=== PATIENT | female | born 1960 | race Caucasian/White ===

== ENCOUNTER 2024-05-23 12:15 | Observation (INO) | payer OTHER, MEDICAID ==
[2024-05-23 14:16] VITALS: BMI 33.3
[2024-05-23] MEDS ORDERED: Ondansetron PF 4 MG/2 ML Vial IVP PRN (14:43)
[2024-05-23] MEDS ORDERED: hydrALAZINE 20 MG/ML VIAL SLOW IVP PRN (14:47)
[2024-05-23] MEDS: Aspirin 81 mg Enteric Coated Tablet PO SCH (16:10)
[2024-05-23] MEDS: Acetaminophen 325 MG TAB PO PRN (17:59)
[2024-05-23] MEDS: Acetaminophen/Codeine 30-300mg Tablet PO PRN (20:01)
[2024-05-23] MEDS ORDERED: Melatonin 3 MG TAB PO PRN (20:22)
[2024-05-23] MEDS ORDERED: Melatonin 3 MG TAB PO SCH (21:00)
[2024-05-23] MEDS: QUEtiapine 100 MG TAB PO SCH (21:39)
[2024-05-23] MEDS: Methocarbamol 500 MG TAB PO SCH (21:39)
[2024-05-23] MEDS: Atorvastatin Calcium 40 MG TAB PO SCH (21:39)
[2024-05-23] MEDS: busPIRone HCl 15 MG TAB PO SCH (21:39)
[2024-05-23] MEDS: Pantoprazole DR 40 MG TAB PO SCH (21:40)
[2024-05-23] MEDS: levETIRAcetam 500 MG TAB PO SCH (21:40)
[2024-05-23] MEDS: traZODone HCl 150 MG TAB PO SCH (21:41)
[2024-05-23] MEDS: Temazepam 15 MG CAP PO SCH (21:50)
[2024-05-24 04:44] LABS: #Basophils 0.02 10x3/uL (0.0-0.2); #Eosinophils 0.01 10x3/uL (0.0-0.5); #Monocytes 0.36 10x3/uL (0.0-1.1); #Neutrophils 2.12 10x3/uL (1.5-8.4); %Basophils 0.4 % (0.0-2.0); %Eosinophils 0.2 % (0.0-6.0); %Lymphocytes 43.6 % (18.0-47.0); %Monocytes 8.1 % (0.0-10.0); %Neutrophils 47.5 % (40.0-75.0); Hematocrit 40.5 % (34.9-44.5); Hemoglobin 13.7 g/dL (12.0-15.5); Mean Corpuscular HGB CONC 33.8 g/dL (32.0-36.0); Mean Corpuscular Hemoglobin 30.8 pg (27.0-33.0); Mean Platelet Volume 9.6 fL (7.4-10.4); Platelet Count 142 10x3/uL (150-450); RBC Distribution Width 12.4 % (11.5-14.5); Red Blood Cell (RBC) Count 4.45 10x6/uL (3.90-5.03); White Blood Cell (WBC) Count 4.5 10x3/uL (3.5-10.5)
[2024-05-24 04:57] LABS: Anion Gap 12 mmol/L (10-20); BUN (Urea Nitrogen) 11 mg/dL (9.8-20.1); Calc. Creatinine Clearance 100 mL/min (70-130); Calcium 9.3 mg/dL (7.8-10.44); Carbon Dioxide 24 mmol/L (23-31); Cardiac Risk 2.7 (Less than 4.5); Chloride 108 mmol/L (98-107); Cholesterol 144 mg/dl (< 200 Desired); Estimated GFR 83; Glucose 90 mg/dL (80-115); HDL Cholesterol 54 mg/dL (>60 Neg Risk); LDL Cholesterol, Calculated 70 mg/dL; Potassium 4.1 mmol/L (3.5-5.1); Sodium 140 mmol/L (136-145); Triglycerides 99 mg/dL (Less than 150)
[2024-05-24] MEDS ORDERED: Non-Formulary Medication 1 EACH (Linaclotide [Linzess] 145 MCG Capsule) PO SCH (07:30)
[2024-05-24] MEDS: FLUoxetine HCl 20 MG CAP PO SCH (09:38)
[2024-05-24] MEDS: Enoxaparin 40 MG (0.4 mL) SYRINGE SC SCH (09:39)
[2024-05-24] MEDS: Metoprolol Tartrate 50 MG TAB PO SCH (09:39)
[2024-05-24] MEDS: Aspirin 81 mg Enteric Coated Tablet PO SCH (09:39)
[2024-05-24] MEDS ORDERED: BUPRENORPHINE TD SCH (09:45)
[2024-05-24 12:36] LABS: Hemoglobin A1c 5.4 % (4.0-6.0)
[2024-05-24 20:13] VITALS: BP 142/76; TEMP 98
== END 2024-05-24 20:35 | disposition home or self-care (01) ==
LOC: CSHTELE 14:04
PROVIDERS: ADMIT Internal Medicine; ATTEND Internal Medicine
DX: R29.810 Facial weakness (principal); I10 Essential (primary) hypertension; E78.5 Hyperlipidemia, unspecified; K21.9 Gastro-esophageal reflux disease without esophagitis; F43.10 Post-traumatic stress disorder, unspecified; F32.A Depression, unspecified; F41.9 Anxiety disorder, unspecified; G40.909 Epilepsy, unspecified, not intractable, without status epilepticus; Z87.820 Personal history of traumatic brain injury; Z88.2 Allergy status to sulfonamides; Z90.49 Acquired absence of other specified parts of digestive tract; F17.210 Nicotine dependence, cigarettes, uncomplicated; Z98.890 Other specified postprocedural states
CPT/HCPCS: 70551; 80048; 80061; 82962 ×2; 83036; 85025; 96372; G0378 ×2; J1650; 36415; 36416